=== PATIENT | female | born 1990 | race Caucasian/White ===

== ENCOUNTER → 2017-01-27 | Outpatient (REF) | payer OTHER ==
[~2017-01-27] MED LIST: ACET50TA PO; IBUP-1114 PO; PRENTAB9 PO
== END ==
LOC: M LAB REF 16:57
PROVIDERS: ATTEND Obstetrics & Gynecology
DX: Z12.4 Encounter for screening for malignant neoplasm of cervix (principal)

== ENCOUNTER → 2017-12-05 | Outpatient (CLI) | payer OTHER ==
[2017-12-05 12:37] LABS: HCG, SERUM QUANTITATIVE 154 MIU/ML
== END ==
LOC: M LAB 11:00
DX: O20.0 Threatened abortion (principal)
CPT/HCPCS: 84702

== ENCOUNTER → 2017-12-07 | Outpatient (CLI) | payer OTHER ==
[2017-12-07 11:57] LABS: HCG, SERUM QUANTITATIVE 78 MIU/ML
== END ==
LOC: M LAB 10:58
DX: O20.0 Threatened abortion (principal)
CPT/HCPCS: 84702

== ENCOUNTER → 2018-06-10 | Outpatient (CLI) | payer OTHER ==
[2018-06-10 17:32] LABS: BASO % 0.4 % (0.0-1.0); EOS # 0.2 10^3/uL (0.0-0.50); EOS % 2.2 % (0.0-3.0); HEMATOCRIT 39.5 % (36.0-47.0); HEMOGLOBIN 13.9 g/dl (12.0-15.5); IMMATURE GRANULOCYTE % 0.4 % (0-3.0); LYMPH # 1.1 10^3/uL (1.5-6.5); MEAN CORPUSCULAR HGB CONC 35.2 g/dl (32.0-36.5); MONO # 0.4 10^3/uL (0.0-0.8); MONO % 5.9 % (0.0-5.0); NEUTROPHILS # 5.6 10^3/uL (1.8-7.7); NEUTROPHILS % 76.1 % (36.0-66.0); PLATELET COUNT, AUTOMATED 205 10^3/uL (150-450); RED BLOOD COUNT 4.34 10^6/uL (4.00-5.40); RED CELL DISTRIBUTION WIDTH 12.5 % (11.5-14.5); WHITE BLOOD COUNT 7.3 10^3/uL (4.0-10.0)
[2018-06-10 18:02] LABS: RUBELLA IgG QUALITATIVE IMMUNE (IMMUNE)
[2018-06-10 18:03] LABS: HBsAg Prenatal NEGATIVE (NEGATIVE)
[2018-06-10 18:30] LABS: HEPATITIS C VIRUS ABY INDEX 0.1 INDEX (<0.8)
[2018-06-10 18:31] LABS: HIV 1&2 SCREEN CENTAUR NEGATIVE (NEGATIVE)
[2018-06-10 21:20] LABS: CHLAMYDIA DNA AMPLIFICATION NEGATIVE (NEGATIVE); GC DNA AMPLIFICATION NEGATIVE (NEGATIVE)
== END ==
LOC: M SMT 11:08
DX: Z36.89 Encounter for other specified antenatal screening (principal); Z3A.12 12 weeks gestation of pregnancy
CPT/HCPCS: 86762

== ENCOUNTER → 2018-07-27 | Outpatient (CLI) | payer OTHER | LOC: M RAD 10:15 | DX: Z36.89 Encounter for other specified antenatal screening (principal); Z3A.18 18 weeks gestation of pregnancy | CPT/HCPCS: 76811 ==

== ENCOUNTER → 2018-08-18 | Outpatient (CLI) | payer OTHER | LOC: M RAD 10:56 | DX: Z34.82 Encounter for supervision of other normal pregnancy, second trimester (principal); Z3A.21 21 weeks gestation of pregnancy | CPT/HCPCS: 76816 ==

== ENCOUNTER → 2018-10-02 | Outpatient (CLI) | payer OTHER ==
[2018-10-02 14:14] LABS: HEMATOCRIT 35.2 % (36.0-47.0); HEMOGLOBIN 12.1 g/dl (12.0-15.5); MEAN CORPUSCULAR HEMOGLOBIN 31.4 pg (27.0-33.0); MEAN CORPUSCULAR HGB CONC 34.4 g/dl (32.0-36.5); MEAN CORPUSCULAR VOLUME 91.4 fl (80.0-96.0); PLATELET COUNT, AUTOMATED 172 10^3/uL (150-450); RED BLOOD COUNT 3.85 10^6/uL (4.00-5.40); RED CELL DISTRIBUTION WIDTH 12.2 % (11.5-14.5); WHITE BLOOD COUNT 8.1 10^3/uL (4.0-10.0)
[2018-10-02 14:43] LABS: GLUCOSE CHALLENGE TEST 1 HOUR 114 MG/DL (LESS THAN 140)
== END ==
LOC: M LAB 12:48
DX: Z36.89 Encounter for other specified antenatal screening (principal)
CPT/HCPCS: 82950

== ENCOUNTER → 2018-11-18 | Outpatient (REF) | payer OTHER ==
[~2018-11-18] MED LIST changes: -ACET50TA PO; +MAPA500T17 PO
== END ==
LOC: M LAB REF 17:16
PROVIDERS: ATTEND Advanced Practice Midwife
DX: Z36.89 Encounter for other specified antenatal screening (principal); Z3A.00 Weeks of gestation of pregnancy not specified

== ENCOUNTER 2018-12-15 08:23 | Inpatient (IN) | payer OTHER ==
[~2018-12-15] VITALS: Ht 154.9 cm; Wt 71.0 kg
[~2018-12-15 08:23] MED LIST changes: -MAPA500T17 PO; +MAPA500T2 PO
[2018-12-15 08:35] VITALS: BP 116/72
[2018-12-15] MEDS ORDERED: LR 1,000 ML IV SCH ×2 (08:57→18:16)
[2018-12-15] MEDS ORDERED: PENICILLIN G POTASSIUM IV 5 MU in D5W MINI-BAG PLUS 100 ML IV STA (08:57)
[2018-12-15] MEDS ORDERED: LACTATED RINGER'S 1000 ML IV STA (08:57)
--- NOTE | 2018-12-15 09:06 | NUR ---
L&D H&P HPI: 28 year old at 39+2 weeks estimated gestation. Expected date of confinement: 12/20/18. dated by LMP c/w first TM US. Presents today with painful,frequent contractions for the past several hours. Denies vaginal bleeding, loss of fluid. Reports regular movement. course uncomplicated. labs: Blood type O+, antibody screen negative, rubella immune, VDRL nonreactive , hepatitis B surface antigen negative, HIV negative, hepatitis C antibody negative, GC/CT negative, aneuploidy/maternal serum screening: Panorama low risk, XY, 1 hour glucose challenge test: 114, GBS POSITIVE Vaccinations: Tdap declined Flu vaccine declined Radiology/OB US: no anomalies or placental abnormalities detected. History Past medical history: none Surgical history: none Medications: PNV Allergies: NKDA [employer] history: h/o CT(treated). no dysplasia/STI OB history: Term x 2, both uncomplicated, largest 9lbs 7oz. EAB x 2, SAB x 1 Social history: no t/e/d Family history: hemophilia (pts aunts) Objective Vitals: Normotensive, normal heart rate, afebrile Heart: Regular rate and rhythm. No murmurs, rubs or gallops. Lungs: Clear to auscultation bilaterally. No wheezes, crackles, rales or rhonchi. Abdomen: Uterine fundal height consistent with dates. No guarding or rebound tenderness. Extremities: No clubbing, cyanosis or edema. Normal deep tendon reflexes. Sterile vaginal exam: 4-5 cm, 75 %effacement, -3 station, cephalic, intact External monitoring: heart rate category 1 Tocodynamometer: contractions occurring every 2-5min Assessment/Plan 28 year old at 39+2 weeks gestation. Diagnosis: active labor at term. Reassuring and maternal status. -Admit to labor and delivery with routine labs and orders -External monitoring and tocodynamometer -Pediatrics and anesthesia consultations as needed. -GBS prophylaxis with IV penicillin -Augment labor with Pitocin as needed Dr. Brian Swenson, DO, FACOG
[2018-12-15 10:05] LABS: HEMOGLOBIN 11.2 g/dl (12.0-15.5); MEAN CORPUSCULAR HEMOGLOBIN 27.2 pg (27.0-33.0); MEAN CORPUSCULAR HGB CONC 32.9 g/dl (32.0-36.5); MEAN CORPUSCULAR VOLUME 82.5 fl (80.0-96.0); PLATELET COUNT, AUTOMATED 199 10^3/uL (150-450); RED BLOOD COUNT 4.12 10^6/uL (4.00-5.40); WHITE BLOOD COUNT 13.3 10^3/uL (4.0-10.0)
[2018-12-15 10:51] VITALS: BP 120/79
[2018-12-15 13:20] VITALS: BP 131/84
[2018-12-15] MEDS ORDERED: PENICILLIN G POTASSIUM IV 2.5 MU in APPROPRIATE DILUENT 1 EA IV SCH (14:00)
--- NOTE | 2018-12-15 15:45 | NUR ---
Progress Note Pt continuing to contract frequently/painfully. No LOF or VB. +FM Recently received 2nd dose of GBS prophylaxis. VSS/af SVE: 5cm/75%/-2 EFM: Cat I [place]: ctxs every 2-4 min AROM, clear A/P: Protracted active phase of labor. Uncomplicated AROM. Reassuring maternal and status. -Repeat SVE in 2-4 hours or sooner PRN. Sue Swenson DO
[2018-12-15 16:08] VITALS: BP 131/86
[2018-12-15] MEDS ORDERED: OXYTOCIN 30 UNITS IN 0.9% NaCl 500ML IV BAG (J2590) As Ordered ONE (16:30)
[2018-12-15 17:19] VITALS: BP 140/85
[2018-12-15] MEDS ORDERED: OXYTOCIN DRIP 30 UNITS in APPROPRIATE DILUENT 1 EA IV SCH (18:16)
--- NOTE | 2018-12-15 18:22 | NUR ---
Delivery note Spontaneous vaginal delivery Estimated gestational age at delivery: 39+0 weeks The active phase and second stage of labor progressed in normal fashion without epidural anesthesia. Patient received Pitocin labor augmentation during the final stages of pushing. She received a full course of GBS prophylaxis. Pt had screened GBS+ The head delivered left occiput anterior and restituted left occiput transverse. No nuchal cord was noted. The anterior shoulder delivered with gentle downward guidance and the remainder of the body delivered with ease. The nuchal cord was reduced. Cord clamping was delayed for approximately 1 minute after delivery. After doubly clamping the cord, I allowed the FOB to cut the cord. The was placed on the patient's chest for immediate bonding. [place] data: Apgars 9 and 9. weight 3930 grams 8 pounds, 11 ounces. Time of delivery: 1801. Sex: Male. The third stage of labor was actively managed with a bolus of IV Pitocin (30 units in 500 mL of normal saline). The placenta delivered completely intact with no missing cotyledons at 1804. A three-vessel cord with a central insertion was noted. After delivery of the placenta, the uterine fundus was approximately 2 cm below the umbilicus and firm. IV Pitocin was continued to maintain uterine tone. A normal, low level of uterine bleeding was noted. The cervix, vagina, vulva and perineum were inspected for lacerations. No laceration was noted. Excellent hemostasis was noted. Estimated blood loss: 200ml. All sponges, needles, and instruments were accounted for per BUILDING MANAGER department protocol. Brian Swenson D.O., F.A.C.OSalvador.
[2018-12-15] MEDS ORDERED: PROMETHAZINE 25 MG TAB PO PRN (18:30)
[2018-12-15] MEDS ORDERED: ACETAMINOPHEN 500 MG TAB PO PRN (18:30)
[2018-12-15] MEDS ORDERED: RHOGAM 300 MCG (1500 IU) INJ (J2790) IM SCH (18:30)
[2018-12-15] MEDS ORDERED: DOCUSATE SODIUM 100 MG CAP PO PRN (18:30)
[2018-12-15] MEDS ORDERED: MEASLES,MUMPS,RUBELLA VACCINE INJ (MMR-II) (90707) SC SCH (18:30)
[2018-12-15] MEDS ORDERED: ONDANSETRON 4MG/2ML VIAL (J2405) IV PRN (18:30)
[2018-12-15] MEDS ORDERED: DIBUCAINE 1% OINTMENT 30GM TOP PRN (18:30)
[2018-12-15] MEDS: IBUPROFEN 800 MG TAB PO PRN (19:45)
[2018-12-15 20:40] VITALS: BP 100/59
[2018-12-16 06:00] VITALS: BP 103/60
--- NOTE | 2018-12-16 06:06 | NUR ---
Day 1 Status post , uncomplicated Subjective Pain is well controlled. Lochia decreasing and minimal. Voiding spontaneously. Tolerating a regular diet. Ambulating without any assistance. Denies any subjective fever/chills/nausea/vomiting/headache/visual changes/shortness of breath/chest pain. Objective Vitals: Normotensive, normal heart rate, afebrile, adequate urine output. Heart: regular, rate, and rhythm. no murmurs/gallops/rubs Lungs: clear to auscultation bilaterally, no wheezes/crackles/rales/ronchi Abd: soft, nontender, nondistended, uterine fundus is 2cm below umbilicus and firm Ext: no significant edema, nontender, negative Aba's bilaterally. Assessment/Plan: day 1. Recovering well. Hemodynamically stable, afebrile, good pain control. -Routine care -Discharge to home later tonight or tomorrow AM. -Routine infectious, fever, pain, and bleeding precautions reviewed Dr. Brian Swenson, [place].O., F.A.C.O.G.
[2018-12-16] MEDS: IBUPROFEN 800 MG TAB PO PRN ×2 (07:22→20:16)
[2018-12-16] MEDS ORDERED: PRENATAL VITAMINS CHEWABLE TABLET PO SCH (09:00)
[2018-12-16 18:00] VITALS: BP 103/62
== END 2018-12-16 20:30 | disposition home or self-care (01) | DRG 560 ==
LOC: M LDO 08:23 → M LDI 08:53 → M OBS 20:37
PROVIDERS: ADMIT Obstetrics & Gynecology; ATTEND Obstetrics & Gynecology
PROC: 10E0XZZ Delivery of Products of Conception, External Approach (ICD-10-PCS; principal; 2018-12-15)
DX: O69.82X0 Labor and delivery complicated by other cord entanglement, without compression, not applicable or unspecified (principal); Z37.0 Single live birth; Z3A.39 39 weeks gestation of pregnancy; O99.820 Streptococcus B carrier state complicating pregnancy

== ENCOUNTER → 2023-03-26 | Outpatient (CLI) | payer OTHER ==
[2023-03-26 14:05] LABS: BASO # 0.1 10^3/uL (0.0-0.2); BASO % 0.4 % (0.0-1.0); EOS # 0.1 10^3/uL (0.0-0.5); EOS % 1.2 % (0.0-3.0); HEMATOCRIT 43.6 % (36.0-47.0); HEMOGLOBIN 14.6 g/dl (12.0-15.5); LYMPH # 1.6 10^3/uL (1.5-5.0); LYMPH % 14.6 % (24.0-44.0); MEAN CORPUSCULAR HEMOGLOBIN 31.7 pg (27.0-33.0); MEAN CORPUSCULAR HGB CONC 33.5 g/dl (32.0-36.5); MEAN CORPUSCULAR VOLUME 94.6 fl (80.0-96.0); MONO # 0.7 10^3/uL (0.0-0.8); MONO % 6.3 % (2.0-8.0); NEUTROPHILS # 8.6 10^3/uL (1.5-8.5); NEUTROPHILS % 77.1 % (36.0-66.0); PLATELET COUNT, AUTOMATED 237 10^3/uL (150-450); RED BLOOD COUNT 4.61 10^6/uL (4.00-5.40); WHITE BLOOD COUNT 11.2 10^3/uL (4.0-10.0)
[2023-03-26 14:23] LABS: ALBUMIN 4.5 G/DL (3.2-5.2); ALKALINE PHOSPHATASE 58 U/L (46-116); ALT/SGPT 20 U/L (7.0-40); AST/SGOT 41 U/L (<34); BILIRUBIN,TOTAL 0.7 MG/DL (0.3-1.2); BLOOD UREA NITROGEN 14 MG/DL (9-23); CALCIUM LEVEL 9.7 MG/DL (8.5-10.1); CARBON DIOXIDE LEVEL 24 MMOL/L (20-31); CHLORIDE LEVEL 107 MMOL/L (98-107); CREATININE FOR GFR 0.59 MG/DL (0.55-1.30); FREE T4 0.87 NG/DL (0.89-1.76); GLOMERULAR FILTRATION RATE > 60.0 (>60); GLUCOSE, FASTING 89 MG/DL (60-100); POTASSIUM SERUM 4.7 MMOL/L (3.5-5.1); SODIUM LEVEL 137 MMOL/L (136-145); THYROID STIMULATING HORMONE 1.159 uIU/ML (0.55-4.78); TOTAL PROTEIN 7.5 G/DL (5.7-8.2)
== END ==
LOC: M PLALAB 09:54
PROVIDERS: ATTEND Nurse Practitioner Family
DX: R53.83 Other fatigue (principal); E55.9 Vitamin D deficiency, unspecified